=== PATIENT | male | born 1990 | race Caucasian/White ===

== ENCOUNTER 2024-05-24 08:54 | Emergency (ER) | payer OTHER, SELFPAY ==
[2024-05-24 08:56] VITALS: BP 155/103; PULSE 88; RESP 14; TEMP 36.8; O2SAT 97; BMI 37.7
--- NOTE | 2024-05-24 09:04 | PC.NURSE ---
Pt has a crescent shaped laceration on the lateral side of his nail on his left middle digit
[2024-05-24] MEDS: TET,DIPH,PERTUSS(ACELL),VAC/PF 0.5 ML SYRINGE IM (09:09)
--- NOTE | 2024-05-24 10:08 | ED_ITS ---
HPI - Wound/Laceration General Chief Complaint: Wound/Laceration Stated Complaint: laceration on finger Time Seen by Provider: 05/24/24 10:02 Source: patient, RN notes reviewed and old records reviewed Mode of arrival: Ambulatory Limitations: no limitations History of Present Illness HPI narrative: This is a 34-year-old male who has a laceration to his middle finger on his left hand. Patient was at home using a knife when he accidentally cut himself was adjacent to the nail but did not included. Had flap was little bit gapped. Patient states it is since laid down after it is bled. He states no numbness ti ngling or weakness. Denies any other injuries. He has had multiple cuts on both hands in the past. Sometimes requiring sutures and sometimes has glued. Patient denies any issues. States tetanus is not up-to-date. Related Data Allergies Allergy/AdvReac Type Severity Reaction Status Date / Time No Known Drug Allergies Allergy Verified 05/24/24 09:01 Review of Systems Review of Systems ROS Unobtainable: All systems reviewed & are unremarkable except as noted in HPI and below Patient History tobacco type: smokeless tobacco alcohol intake frequency: holidays/special occasions only Substance Use Type: does not use Exam Narrative Exam Narrative: GENERAL: Alert and oriented x three, male in mild distress HEENT: Head normocephalic, atraumatic, EOMI, pupils reactive, face symmetric, moist mucous membranes NECK: Supple, full range of motion EXTREMITIES: Normal range of motion, no clubbing or edema. Neurovascularly intact. Patient has a laceration on the medial side of the 3rd finger of the left hand, currently laid down does not gape easily when I pull on it. Patient does not appear to have any nail involvement. Cap refills less than 2 seconds. Normal range of motion. No bony tenderness. NEUROLOGICAL: Cranial nerves II through XII grossly intact. Moving all extremities SKIN: Warm, dry, no petechiae, no rashes or lesions. Initial Vital Signs Initial Vital Signs: Vital Signs Temperature 98.3 F 05/24/24 08:56 Pulse Rate 88 05/24/24 08:56 Respiratory Rate 14 05/24/24 08:56 Blood Pressure 155/103 H 05/24/24 08:56 Pulse Oximetry 97 05/24/24 08:56 Oxygen Delivery Method Room Air 05/24/24 08:56 Procedures Laceration Repair Laceration 1: Site: hand (3rd finger) Side (If applicable): left Description: flap Depth: simple, single layer Pre-repair: wound explored, irrigated extensively and deep structures intact Skin layer closed with: dermabond (Steri-Strips) Course Orders Ordered: Discontinued Medications Diphtheria/Tetanus/Acell Pertussis (Tet,Diph,Pertuss(Acell),Vac/Pf 0.5 Ml Syringe) 0.5 ml IM .ONCE ONE Stop: 05/24/24 09:07 Last Admin: 05/24/24 09:09 Dose: 0.5 ml Documented By: GONZALO Vital Signs Vital signs: Vital Signs - 8 hr 05/24/24 08:56 Temperature 98.3 F Pulse Rate 88 Respiratory Rate 14 Blood Pressure 155/103 H Pulse Oximetry 97 Oxygen Delivery Method Room Air MDM - Wound/Laceration MDM Narrative Medical decision making narrative: 34-year-old male with laceration to his left 3rd digit, small avulsion laceration, nail is not involved. Does not gape easily and after discussion with the patient we will use Dermabond Steri-Strips rather than sutures. He is agreeable to the plan. Discussed return precautions all questions answered. Tetanus was updated today. Discharge Plan Departure Patient Disposition: Home Clinical Impression: Laceration of finger Instructions: DI for Laceration Repair-Skin Glue Activity Restrictions/Additional Instructions: Wound Care: Keep wound(s) clean and dry. Wash daily with soap and water only. You can trim the Steri-Strips as they start to peel up. Do not use over the counter products (alcohol or peroxide)on the wounds unless instructed by a physician. If wound condition worsens (increased/expanding redness, developing fluid blisters, or worsening pain), either contact your doctor for an urgent re- assessment , or return to the Emergency Department. Return to the Emergency Department for any new or worsening symptoms. Return if fever greater than 100.4 Fahrenheit, increased swelling, increasing pain or worsening symptoms such as increased discharge or spreading redness. Stand Alone Forms: Patient Portal/API
[2024-05-24 10:26] VITALS: BP 146/87; PULSE 78; O2SAT 97
== END 2024-05-24 10:26 | disposition home or self-care (01) ==
PROVIDERS: Emergency Provider Emergency Medicine
DX: S61.213A Laceration without foreign body of left middle finger without damage to nail, initial encounter (principal); W26.0XXA Contact with knife, initial encounter; Z23 Encounter for immunization
CPT/HCPCS: 90471; 99283; 90715

== ENCOUNTER 2025-05-06 18:38 | Emergency (ER) | payer OTHER, SELFPAY ==
[2025-05-06 19:41] VITALS: BP 135/81; PULSE 92; RESP 15; TEMP 36.8; O2SAT 96; BMI 39.6
--- NOTE | 2025-05-06 20:48 | ED_ITS ---
HPI - Extremity Problem General Chief complaint: Extremity Problem,Nontraumatic Stated complaint: Lt arm , swelling, redness, pain Time Seen by Provider: 05/06/25 20:38 Source: patient and family Mode of arrival: Ambulatory History of Present Illness HPI Narrative: Otherwise healthy 35-year-old gentleman noticing increasing pain over his elbow in the last 24 hours. Mild redness. No obvious trauma that he recalls. No fevers Related Data Previous Rx's ?Medication ?Instructions ?Recorded doxycycline hyclate 100 mg capsule 100 mg PO BID #20 c aps 05/06/25 Allergies Allergy/AdvReac Type Severity Reaction Status Date / Time No Known Drug Allergies Allergy Verified 05/24/24 09:01 Review of Systems Review of Systems Narrative: Pertinent positive and negative findings as per HPI Patient History tobacco type: smokeless tobacco alcohol intake frequency: holidays/special occasions only Exam Initial Vital Signs Initial Vital Signs: Vital Signs Temperature 98.2 F 05/06/25 19:41 Pulse Rate 92 H 05/06/25 19:41 Respiratory Rate 15 05/06/25 19:41 Blood Pressure 135/81 05/06/25 19:41 Pulse Oximetry 96 05/06/25 19:41 Oxygen Delivery Method Room Air 05/06/25 19:41 General: Alert appropriate in no acute distress Respiratory: Able to speak in full sentences, no obvious respiratory distress Skin: No obvious rashes, warm and dry Neurologic: Grossly intact no obvious asymmetries or abnormalities Psych: appropriate insight and affect, cooperative Extremity: Left elbow with mild olecranon bursitis and concern for mild developing cellulitis without significant pain to suggest that the olecranon itself is infected. He is able to fully extend the elbow without any pain, I do not suspect septic joint Course Orders Ordered: Discontinued Medications Doxycycline Hyclate (Doxycycline Hyclate 100 Mg Tablet) 100 mg PO NOW ONE Stop: 05/06/25 20:49 Vital Signs Vital signs: Vital Signs - 8 hr 05/06/25 19:41 Temperature 98.2 F Pulse Rate 92 H Respiratory Rate 15 Blood Pressure 135/81 Pulse Oximetry 96 Oxygen Delivery Method Room Air MDM - Extremity (Nontraumatic) MDM Narrative Medical decision making narrative: Otherwise healthy 35-year-old young man with increasing pain and redness to the left elbow. No evidence of fracture, septic joint, he does have some mild bursitis and I am concerned that he is developing superficial cellulitis over this area which puts him at risk for bursal infection. I do not think that the bursa is involved at this time. I am going to place him on doxycycline, 1st doses given in the emergency department reviewed with him reasons to return to the emergency department and anticipated recovery. He is safe for discharge Discharge Plan Departure Patient Disposition: Home Clinical Impression: Cellulitis Qualifiers: Site of cellulitis: extremity Site of cellulitis of extremity: upper extremity Laterality: left Qualified Code(s): L03.114 - Cellulitis of left upper limb Bursitis, olecranon Qualifiers: Laterality: left Qualified Code(s): M70.22 - Olecranon bursitis, left elbow Instructions: DI for Cellulitis -- Adult, DI for Elbow Bursitis Activity Restrictions/Additional Instructions: Thank you for coming in today You are developing an olecranon bursitis which is inflammation in the bursa which is protecting your elbow. Typically this is from minor injury or overuse. As that has been slightly more swollen I suspect that you have scratched your elbow or otherwise bumped it and now developing a superficial cellulitis, an infection in the skin. At this time, I do not think that the infection connects with the bursa. If that happens, you will have increasing pain, increasing difficulty moving your elbow and increasing swelling. Should you develop any of those symptoms you do need to return to the emergency department A prescription for doxycycline, an antibiotic was sent to [facility]. Please complete the entire prescription Using 400 mg of ibuprofen (2 [id number] pills) and 1 Tylenol every 6 hours can be very helpful in controlling pain. If you find that you are getting worse or develop any new symptoms, please feel free to return to the emergency department for further evaluation. Prescriptions: New doxycycline hyclate 100 mg capsule 100 mg PO BID Qty: 20 0RF Stand Alone Forms: Patient Portal/API
[2025-05-06 21:08] VITALS: BP 122/78; PULSE 87; RESP 16; O2SAT 99
[2025-05-06] MEDS: DOXYCYCLINE HYCLATE 100 MG TABLET PO (21:08)
== END 2025-05-06 21:08 | disposition home or self-care (01) ==
PROVIDERS: Emergency Provider Emergency Medicine
DX: L03.114 Cellulitis of left upper limb (principal); M70.22 Olecranon bursitis, left elbow
CPT/HCPCS: 99283